=== PATIENT | male | born 1985 | race Asian ===

== ENCOUNTER 2021-08-05 01:31 | Emergency (ER) | payer OTHER ==
[~2021-08-05] VITALS: Ht 175.3 cm; Wt 78.5 kg
[2021-08-05] MEDS ORDERED: SODIUM CHLORIDE 0.9% 1,000ML IVBOLUS ONE (03:00)
[2021-08-05] MEDS ORDERED: SODIUM CHLORIDE FLUSH 10ML SYR IVF ONE (03:00)
[2021-08-05 03:11] LABS: BASOPHILS % (AUTO) 1 % (0-1); EOSINOPHILS % (AUTO) 2 % (1-7); LYMPHOCYTES % (AUTO) 17 % (22-44); MEAN CORPUSCULAR HEMOGLOBIN 29.1 pg (27.5-34.5); MEAN CORPUSCULAR HGB CONC 34.1 g/dL (33.2-36.2); MEAN PLATELET VOLUME 8.5 fL (7.4-10.4); MONOCYTES % (AUTO) 6 % (2-9); NEUTROPHILS % (AUTO) 74 % (42-75); PLATELET COUNT 274 x10^3/uL (130-400); RED BLOOD COUNT 5.48 x10^6/uL (4.38-5.82); RED CELL DISTRIBUTION WIDTH 13.6 % (9.4-14.8)
[2021-08-05 03:18] LABS: MICROSCOPIC AUTO
[2021-08-05 03:54] VITALS: BP 132/87
[2021-08-05 03:58] LABS: ALBUMIN 3.9 g/dL (3.4-5.0)
[2021-08-05 04:02] LABS: ALKALINE PHOSPHATASE 45 U/L (45-117); BILIRUBIN,TOTAL 0.5 mg/dL (0.2-1.0); TOTAL PROTEIN 7.7 g/dL (6.4-8.2)
[2021-08-05 04:17] LABS: ALANINE AMINOTRANSFERASE 60 U/L (12-78); ANION GAP 8 mmol/L (5-15); CALCIUM 8.3 mg/dL (8.5-10.1); CHLORIDE 108 mmol/L (98-107); CREATININE 0.85 mg/dL (0.7-1.3)
[2021-08-05] MEDS ORDERED: KETOROLAC 30 MG/1 ML ONE (04:43)
[2021-08-05] MEDS ORDERED: OXYcodone/APAP 5/325MG TABLET ONE (04:44)
[2021-08-05] MEDS ORDERED: OXYcodone/APAP 5/325MG TABLET PO ONE (05:00)
[2021-08-05] MEDS ORDERED: KETOROLAC 30 MG/1 ML IV ONE (05:00)
== END 2021-08-05 04:56 | disposition home or self-care (01) ==
LOC: ED 01:36
DX: N13.2 Hydronephrosis with renal and ureteral calculous obstruction (principal)
CPT/HCPCS: 36415; 74176; 80053; 81001; 83690; 85025; 96361; 96374; 99284; J1885; J7030